=== PATIENT | male | born 1940 | race Caucasian/White ===

== ENCOUNTER → 2017-06-13 | Outpatient (CLI) | payer MEDICARE, OTHER ==
--- NOTE | 2017-06-13 17:18 | PCVCIMAG ---
EXAM: BILATERAL LOWER EXTREMITY ARTERIAL DUPLEX INDICATION: Peripheral Arterial Disease. Leg pain. FINDINGS: Right Leg: Satisfactory arterial waveforms in the common femoral and profunda femoral artery and throughout the superficial femoral artery and popliteal artery without flow-limiting stenosis. Occlusion of the mid and distal anterior tibial artery and distal peroneal artery. Possible stenosis throughout the posterior tibial artery. Left Leg: Satisfactory arterial waveforms in the common femoral and profunda femoral artery and throughout the superficial femoral artery and popliteal artery without flow-limiting stenosis. Occlusion of the proximal posterior tibial artery. Occlusion throughout the anterior tibial artery. Diminished flow in the peroneal artery as well. IMPRESSION: Significant bilateral infrapopliteal arterial occlusive disease as reviewed above. LOC:[id number]
== END | disposition home or self-care (01) ==
LOC: PCVCIMAG 15:38
PROVIDERS: ATTEND Internal Medicine Cardiovascular Disease
DX: I77.1 Stricture of artery (principal); I73.9 Peripheral vascular disease, unspecified
CPT/HCPCS: 93925

== ENCOUNTER → 2017-07-09 | Outpatient (CLI) | payer MEDICARE, OTHER ==
[~2017-07-09] MED LIST: CLOPIDOGREL BISULFATE 75 MG TABLET ONE; DIAZEPAM 10 MG TABLET. ONE; EPTIFIBATIDE BOLUS 2,000 MCG/ML 10ML VIAL. IV ONE; HEPARIN SODIUM 5,000 UNIT/ML VIAL for PCVC. ONE; IODIXANOL 270 MG/ML 100 ML VIAL. ONE; IV NORMAL SALINE 500ML BAG 500 ML ONE; LIDOCAINE 1% Multi-Dose 20 ML VIAL. ONE; LIDOCAINE 1%/EPI 1:100,000 20 ML VIAL. ONE; MIDAZOLAM HCL/PF 2 MG/2 ML VIAL. ONE; fentaNYL PF VIAL 100 MCG/2 ML VIAL ONE; hydrALAZINE 20 MG/ML VIAL. ONE
--- NOTE | 2017-07-09 14:07 | PCVCINTER ---
EXAM: 1. AORTOGRAM AND BILATERAL LOWER EXTREMITY RUNOFF ANGIOGRAM 2. BILATERAL RENAL ANGIOGRAPHY 3. RIGHT ANTERIOR TIBIAL ARTERY ATHERECTOMY AND ANGIOSCULPT ANGIOPLASTY. 4. SECONDARY THROMBECTOMY RIGHT ANTERIOR TIBIAL ARTERY. INDICATION: Peripheral arterial disease. Previous right toe amputation. Hypertension. Renal atherosclerosis. PROCEDURE: Procedure and risks of angiography intervention is appropriate including limb loss stroke and were discussed with the patient's family and consent obtained. The patient's left groin was prepped abnormal sterile fashion. IV conscious sedation was used to procedure with appropriate monitoring from 11:15 AM through 12:45 PM. Ultrasound was used to interrogate the left groin and showed the left common femoral artery to be patent. A permanent spot film was obtained. Under ultrasound guidance access into the left common femoral artery was obtained and a 5 [place] sheath was placed. Through this a 5 [place] flush catheter was placed into the abdominal aorta at the level of the renal arteries and AP aortogram was performed. Catheter was positioned at the aortic bifurcation and both oblique views of the pelvis were obtained. Catheter was positioned into the left external iliac artery and left leg runoff angiography was performed. Catheter was exchanged for a visceral catheter was placed into the right renal arteries and right renal angiograms obtained. Catheter was placed into the the left renal arteries and left renal angiograms were obtained. Catheter was advanced to the level of the right external iliac artery and right leg runoff angiography was obtained. Patient was given 4500 units of heparin. A 6 [place] crossover sheath was placed via the left groin to the level of the right common femoral artery. Atherectomy of the right proximal anterior tibial artery was performed with 0.9 mm [employer] laser atherectomy catheter in the standard fashion. Following atherectomy small areas of thrombus were observed and because of this secondary thrombectomy throughout the right anterior tibial artery was carried out with mechanical suction thrombectomy catheter in the standard fashion. Minimal debris was removed. Following this angioplasty of the right anterior tibial artery was carried out with a [employer] angiosculpt [employer] catheter. Follow-up angiogram was performed. Catheters and wires removed. Sheath was removed and hemostasis obtained using the FISH device. No immediate complications. FINDINGS: Aortogram: There is one right and one left renal artery. Tortuous infrarenal abdominal aorta without significant stenosis. Pelvis: The right common external iliac artery show good patency. Both internal iliac arteries are patent. 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 The left external iliac artery is patent. Right renal artery: Mild plaque proximal vessel does not cause significant stenosis. Left renal artery: Mild plaque proximal vessel does not cause significant stenosis. Right leg: Moderate eccentric plaque common femoral artery causes 50% stenosis. Profunda femoral artery is patent. Scattered plaque in the superficial femoral artery and popliteal artery without significant stenosis. 80% stenosis near the origin of the anterior tibial artery. Anterior tibial artery otherwise shows good patency until its distal most portion where shows diffuse moderately high-grade stenosis into the dorsalis pedis. The peroneal artery is continuous throughout although small. The posterior tibial artery has multiple high-grade stenosis in the mid and distal portion runoff into highly diseased plantar arteries. Left leg: Common femoral and profunda femoral arteries are patent. The superficial femoral artery and popliteal artery are patent. There is a high origin of the anterior tibial artery above the level of the knee joint. The anterior tibial artery is a dominant runoff vessel showing moderate stenosis distally to runoff into a small dorsalis pedis. The peroneal artery is diminutive in size. The posterior tibial artery has several areas of high-grade stenosis in the mid and distal portion. Right anterior tibial artery: Following procedure as above satisfactory patency has been restored throughout the anterior tibial artery with only minimal residual stenosis. IMPRESSION: High-grade stenosis proximal right anterior tibial artery was treated as above with satisfactory patency restored. Bilateral infrapopliteal arterial occlusive disease as detailed above. Significant arterial occlusive disease noted in both feet. follow up LOC:[place] [id number]
== END | disposition home or self-care (01) ==
LOC: PCVCINTER 10:03
PROVIDERS: ATTEND Nuclear Medicine Nuclear Cardiology
DX: I70.213 Atherosclerosis of native arteries of extremities with intermittent claudication, bilateral legs (principal); I10 Essential (primary) hypertension; I70.1 Atherosclerosis of renal artery
CPT/HCPCS: 36252; 37186; 37229; 75716; 76937; 99152; 99153; C1725; C1751; C1757; C1760; C1769; C1885; C1894; J0690; J1327; J1644; J2250; J3010; J3490; J7040; Q9966; J0360

== ENCOUNTER → 2017-07-23 | Outpatient (CLI) | payer MEDICARE, OTHER ==
--- NOTE | 2017-07-23 17:02 | PCVCIMAG ---
EXAM: DUPLEX ULTRASOUND OF THE LEFT GROIN INDICATION: Groin swelling and pain. FINDINGS: 1.1 x 1.6 x 2.2 cm pseudoaneurysm is present. The common femoral artery and vein are patent. No arteriovenous fistula is seen. IMPRESSION: 2.2 cm pseudoaneurysm left groin as described. LOC:[id number]
== END | disposition home or self-care (01) ==
LOC: PCVCINTER 15:26
PROVIDERS: ATTEND Nuclear Medicine Nuclear Cardiology
DX: I72.4 Aneurysm of artery of lower extremity (principal); I73.9 Peripheral vascular disease, unspecified; Z98.890 Other specified postprocedural states
CPT/HCPCS: 93926

== ENCOUNTER → 2017-07-24 | Outpatient (CLI) | payer MEDICARE, OTHER ==
[~2017-07-24] MED LIST changes: -CLOPIDOGREL BISULFATE 75 MG TABLET ONE; -DIAZEPAM 10 MG TABLET. ONE; -EPTIFIBATIDE BOLUS 2,000 MCG/ML 10ML VIAL. IV ONE; -HEPARIN SODIUM 5,000 UNIT/ML VIAL for PCVC. ONE; -IODIXANOL 270 MG/ML 100 ML VIAL. ONE; -IV NORMAL SALINE 500ML BAG 500 ML ONE; -LIDOCAINE 1%/EPI 1:100,000 20 ML VIAL. ONE; -MIDAZOLAM HCL/PF 2 MG/2 ML VIAL. ONE; +THROMBIN TOPICAL 5,000 UNIT VIAL. ONE; -fentaNYL PF VIAL 100 MCG/2 ML VIAL ONE; -hydrALAZINE 20 MG/ML VIAL. ONE
--- NOTE | 2017-07-24 17:14 | PCVCIMAG ---
EXAM: ULTRASOUND GUIDED THROMBIN INJECTION OF LEFT GROIN PSEUDOANEURYSM INDICATION: Groin pseudoaneurysm following catheterization procedure. PROCEDURE: Procedure and risks of ultrasound guided thrombin injection of the groin pseudoaneurysm were discussed with the patient and consent obtained. Risks included but were not limited to bleeding, infection, vascular thrombosis, allergic reaction, and limb loss. The left groin was prepped and draped in the normal sterile fashion. Under ultrasound guidance I carefully placed a 20 g spinal needle into the center of the pseudoaneurysm cavity and gently instilled the minimal amount of thrombin solution needed to arrest flow in the cavity under direct color-flow imaging. Needle was removed. Normal arterial and venous flow was documented in the common femoral artery and vein, respectively. No immediate complications. FINDINGS: Technically satisfactory ultrasound guided thrombin injection of the groin pseudoaneurysm. No flow in the pseudoaneurysm remains. Good flow in the adjacent [place] femoral artery and vein is present. Distal pulses are stable compared with preprocedure. IMPRESSION: Left groin pseudoaneurysm injection was satisfactory as reviewed above. LOC:[id number]
== END | disposition home or self-care (01) ==
LOC: PCVCINTER 11:59
PROVIDERS: ATTEND Nuclear Medicine Nuclear Cardiology
DX: I72.8 Aneurysm of other specified arteries (principal)
CPT/HCPCS: 36002; 76936; 76942

== ENCOUNTER → 2017-07-25 | Outpatient (CLI) | payer MEDICARE, OTHER ==
--- NOTE | 2017-07-25 13:39 | PCVCIMAG ---
EXAM: DUPLEX ULTRASOUND OF THE LEFT GROIN INDICATION: Groin swelling and pain. Thrombin injection yesterday. FINDINGS: No pseudoaneurysm is present. The common femoral artery and vein are patent. No arteriovenous fistula is seen. IMPRESSION: Study is negative for pseudoaneurysm. Incidental note is made of a 3.4 x 2.8 cm residual subcutaneous hematoma. LOC:[id number]
== END | disposition home or self-care (01) ==
LOC: PCVCIMAG 12:44
PROVIDERS: ATTEND Nuclear Medicine Nuclear Cardiology
DX: R19.09 Other intra-abdominal and pelvic swelling, mass and lump (principal); M79.81 Nontraumatic hematoma of soft tissue; Z98.890 Other specified postprocedural states
CPT/HCPCS: 93926